=== PATIENT | female | born 1960 | race African-American/Black ===

== ENCOUNTER 2020-12-29 12:05 | Observation (INO) | payer OTHER ==
[2020-12-29] MEDS ORDERED: HYDROcodone/Acetaminophen 5/325 mg Tablet PO PRN (12:46)
[2020-12-29] MEDS ORDERED: Senokot S 8.6-50 MG TAB PO PRN (12:46)
[2020-12-29] MEDS ORDERED: Acetaminophen 325 MG TAB PO PRN (12:46)
[2020-12-29] MEDS ORDERED: Ondansetron PF 4 MG/2 ML Vial IVP PRN (12:46)
[2020-12-29] MEDS ORDERED: Bisacodyl 5 MG TAB PO PRN (12:46)
[2020-12-29] MEDS ORDERED: Ondansetron ODT 4 MG TAB PO PRN (12:46)
[2020-12-29] MEDS ORDERED: Nitroglycerin 0.4 MG TAB (25 Tab Bottle) SL PRN (12:49)
[2020-12-29] MEDS ORDERED: ALPRAZolam 0.25 MG TAB PO PRN (12:49)
[2020-12-29] MEDS ORDERED: Morphine 4 MG/ML VIAL SLOW IVP PRN (12:52)
[2020-12-29] MEDS ORDERED: Nicotine 14 MG PATCH TD SCH (13:15)
[2020-12-29 13:29] VITALS: BMI 41.3
[2020-12-29 13:34] LABS: Troponin I Less than 0.010 ng/mL (< 0.028)
[2020-12-29] MEDS ORDERED: Nitroglycerin 2% Ointment 1 INCH/1 GM Packet TOP SCH (14:00)
[2020-12-29 16:06] LABS: Troponin I Less than 0.010 ng/mL (< 0.028)
[2020-12-29 16:41] VITALS: BP 115/64; TEMP 97.8
[2020-12-29] MEDS ORDERED: Atorvastatin Calcium 40 MG TAB PO SCH (21:00)
[2020-12-29] MEDS ORDERED: Metoprolol Tartrate 25 MG TAB PO SCH (21:00)
[2020-12-29] MEDS ORDERED: Enoxaparin Sodium 120 MG/0.8 ML SYRINGE SC SCH (21:00)
[2020-12-29] MEDS ORDERED: TICAGRELOR 90 MG TABLET PO SCH (21:00)
[2020-12-30 01:16] LABS: SARS-CoV-2 PCR by NAA Not Detected (NotDetected)
[2020-12-30] MEDS ORDERED: Aspirin Chewable 81 MG TAB PO SCH (09:00)
== END 2020-12-29 18:09 | disposition home or self-care (01) ==
LOC: CSHTELE 12:05
PROVIDERS: ADMIT Internal Medicine; ATTEND Family Medicine
DX: R07.9 Chest pain, unspecified (principal); I25.10 Atherosclerotic heart disease of native coronary artery without angina pectoris; I10 Essential (primary) hypertension; E78.5 Hyperlipidemia, unspecified; F41.9 Anxiety disorder, unspecified; F17.210 Nicotine dependence, cigarettes, uncomplicated; Z79.899 Other long term (current) drug therapy; Z95.5 Presence of coronary angioplasty implant and graft; Z98.51 Tubal ligation status; Z79.82 Long term (current) use of aspirin; Z20.822 Contact with and (suspected) exposure to COVID-19
CPT/HCPCS: 87635; 93005; 93010; G0378; U0003; U0005

== ENCOUNTER 2022-10-31 20:36 | Observation (INO) | payer OTHER ==
[2022-10-31] MEDS ORDERED: Aspirin Chewable 81 MG TAB ONE (21:00)
[2022-10-31 21:35] LABS: #Eosinphils 0.2 10x3/uL (0.0-0.5); #Monocytes 0.6 10x3/uL (0.0-1.1); #Neutrophils 2.4 10x3/uL (1.5-8.4); %Basophils 0.8 % (0.0-2.0); %Eosinophils 2.9 % (0.0-6.0); %Lymphocytes 37.1 % (18.0-47.0); %Monocytes 11.8 % (0.0-10.0); %Neutrophils 47.2 % (40.0-75.0); Hemoglobin 13.5 g/dL (12.0-15.5); Mean Corpuscular Hemoglobin 25.8 pg (27.0-33.0); Mean Corpuscular Volume 78.1 fl (81.6-98.3); Mean Platelet Volume 10.1 fl (7.4-10.4); Platelet Count 259 10x3/uL (150-450); RBC Distribution Width 15.2 % (11.5-14.5); Red Blood Cell (RBC) Count 5.24 10x6/uL (3.90-5.03); White Blood Cell (WBC) Count 5.2 10x3/uL (3.5-10.5)
[2022-10-31 21:47] LABS: ALT (SGPT) 15 U/L (8-55); AST (SGOT) 19 U/L (5-34); Albumin 3.9 g/dL (3.4-4.8); Alkaline Phosphatase 91 U/L (40-110); Anion Gap 13 mmol/L (10-20); BUN (Urea Nitrogen) 14 mg/dL (9.8-20.1); Bilirubin, Total 0.2 mg/dL (0.2-1.2); Calc. Creatinine Clearance 0 mL/min (70-130); Calcium 9.9 mg/dL (7.8-10.44); Carbon Dioxide 26 mmol/L (23-31); Chloride 106 mmol/L (98-107); Estimated GFR 50; Globulin 3.1 g/dL (2.4-3.5); Glucose 120 mg/dL (80-115); Potassium 4.1 mmol/L (3.5-5.1); Sodium 141 mmol/L (136-145)
[2022-10-31] MEDS ORDERED: Enoxaparin 120 MG/0.8 ML SYRINGE SC SCH (22:15)
[2022-10-31] MEDS ORDERED: Acetaminophen 650 MG Suppository PR PRN (22:21)
[2022-10-31] MEDS ORDERED: Nitroglycerin 0.4 MG TAB (25 Tab Bottle) SL PRN (22:21)
[2022-10-31] MEDS ORDERED: Ondansetron PF 4 MG/2 ML Vial IVP PRN (22:21)
[2022-10-31] MEDS ORDERED: Ondansetron ODT 4 MG TAB PO PRN (22:21)
[2022-10-31] MEDS ORDERED: Acetaminophen 325 MG TAB PO PRN (22:21)
[2022-10-31] MEDS ORDERED: Mag-Al 1200 mg/1200 mg/30 ML UDCUP PO PRN (22:37)
[2022-10-31] MEDS ORDERED: Morphine 4 MG/ML VIAL SLOW IVP PRN (22:38)
[2022-10-31] MEDS ORDERED: Pantoprazole 40 MG VIAL IVP SCH (23:30)
[2022-10-31 23:40] VITALS: BMI 42.3
[2022-11-01 04:53] LABS: Hemoglobin 12.2 g/dL (12.0-15.5); Mean Corpuscular HGB CONC 31.9 g/dL (32.0-36.0); Mean Corpuscular Hemoglobin 25.2 pg (27.0-33.0); Mean Corpuscular Volume 78.8 fl (81.6-98.3); Mean Platelet Volume 10.4 fl (7.4-10.4); Platelet Count 226 10x3/uL (150-450); RBC Distribution Width 15.1 % (11.5-14.5); Red Blood Cell (RBC) Count 4.85 10x6/uL (3.90-5.03); White Blood Cell (WBC) Count 5.1 10x3/uL (3.5-10.5)
[2022-11-01 04:57] LABS: Anion Gap 10 mmol/L (10-20); BUN (Urea Nitrogen) 16 mg/dL (9.8-20.1); Calc. Creatinine Clearance 100 mL/min (70-130); Calcium 9.2 mg/dL (7.8-10.44); Carbon Dioxide 27 mmol/L (23-31); Chloride 107 mmol/L (98-107); Estimated GFR 60; Glucose 104 mg/dL (80-115); Potassium 4.2 mmol/L (3.5-5.1); Sodium 140 mmol/L (136-145)
[2022-11-01 05:20] LABS: MDiff Complete? YES; Manual Diff?? YES
[2022-11-01 05:24] LABS: Band 1 % (5-11); Eosinophils 4 % (0-10); Lymphocytes 47 % (21-51); Monocytes 13 % (0-10); Neutrophil 24 % (42-75); Platelet Morphology Comment Appears Adequate; Reactive Lymphocytes 10 % (0-10)
[2022-11-01 05:25] LABS: Anisocytosis SLIGHT = 6-15 cells (100X) (0-5/hpf); Macrocytosis SLIGHT = 6-15 cells (100X) (0-5/hpf); Microcytosis SLIGHT = 6-15 cells (100X) (0-5/hpf)
[2022-11-01] MEDS: Benzonatate 100 MG CAP PO SCH ×2 (08:17→15:12)
[2022-11-01] MEDS ORDERED: Loratadine 10 MG TAB PO SCH (09:00)
[2022-11-01] MEDS ORDERED: Aspirin Chewable 81 MG TAB PO SCH (09:00)
[2022-11-01] MEDS ORDERED: Metoprolol Tartrate 25 MG TAB PO SCH (09:00)
[2022-11-01] MEDS ORDERED: FLUoxetine HCl 10 MG CAP PO SCH (09:00)
[2022-11-01] MEDS ORDERED: Fluticasone Propionate Nasal Spray 16 gm Bottle NASAL SCH (09:00)
[2022-11-01] MEDS ORDERED: Clopidogrel Bisulfate 75 MG TAB PO SCH (09:00)
[2022-11-01 11:22] LABS: Troponin I Less than 0.010 ng/mL (< 0.028)
[2022-11-01] MEDS ORDERED: Amlodipine 10 MG TAB PO SCH (14:00)
[2022-11-01] MEDS ORDERED: hydrALAZINE 20 MG/ML VIAL SLOW IVP SCH (14:00)
[2022-11-01] MEDS ORDERED: Mag-Al Plus 1200 MG/1200 MG/120 MG/30 ML UDCUP PO PRN (14:17)
[2022-11-01 14:46] LABS: Troponin I Less than 0.010 ng/mL (< 0.028)
[2022-11-01] MEDS ORDERED: Lidocaine 2% Viscous Solution 10 ML, Aluminum & Magnesium Hydroxide 30 ML SSW SCH (15:00)
[2022-11-01] MEDS ORDERED: Mag-Al Plus 1200 MG/1200 MG/120 MG/30 ML UDCUP ONE (15:04)
[2022-11-01 20:32] VITALS: BP 171/73; TEMP 97.7
[2022-11-01] MEDS ORDERED: Pantoprazole 40 MG VIAL IVP SCH ×2 (21:00)
[2022-11-01] MEDS ORDERED: Atorvastatin Calcium 40 MG TAB PO SCH (21:00)
[2022-11-02] MEDS ORDERED: Amlodipine 5 MG TAB PO SCH (09:00)
== END 2022-11-01 20:00 | disposition home or self-care (01) ==
LOC: CSHERS 20:36 → CSHTELE 22:53
PROVIDERS: ADMIT Student in an Organized Health Care Education/Training Program; ATTEND Family Medicine
DX: R07.2 Precordial pain (principal); I25.10 Atherosclerotic heart disease of native coronary artery without angina pectoris; I10 Essential (primary) hypertension; E78.5 Hyperlipidemia, unspecified; K21.9 Gastro-esophageal reflux disease without esophagitis; E66.01 Morbid (severe) obesity due to excess calories; Z68.41 Body mass index [BMI] 40.0-44.9, adult; Z79.899 Other long term (current) drug therapy; Z20.822 Contact with and (suspected) exposure to COVID-19; Z79.82 Long term (current) use of aspirin; Z87.891 Personal history of nicotine dependence; Z95.5 Presence of coronary angioplasty implant and graft
CPT/HCPCS: 71045; 80048; 80053; 83880; 84484; 85025; 93005; 94760; 96372; 96374; 96375; C9113; G0378; J0360; J1650; U0003; U0005